=== PATIENT | male | born 1980 | race African-American/Black ===

== ENCOUNTER 2016-10-14 07:18 | Emergency (ER) | payer SELFPAY ==
[2016-10-14] MEDS ORDERED: Ketorolac INJ* 60 MG/2 ML VIAL IM ONE (07:47)
--- NOTE | 2016-10-14 08:40 | UC ---
bere Vasquez Timothy, scribed for Joseph Romero MD on 10/14/16 at 0740 . HPI Wound/Suture Re-check - HPI Summary HPI Summary: Ant Draper Jr. is a 35 yo male presenting to [facility] with an open wound on his lower left side after falling on his shed 10/10/16. he is in 9/10 sharp, throbbing, aching pain. he states he had his tetanus shot last year. He attempted to stitch up the wound with super glue, but it reopened. His MHx includes HTN, hernia repair, and tobacco use. - History Of Current Complaint Chief Complaint: UCWounds Stated Complaint: SOFT TISSUE Time Seen by Provider: 10/14/16 07:25 Hx Obtained From: Patient Onset/Duration: Sudden Onset Surgical Site: lower left side Severity: Moderate Pain Intensity: 9 Pain Scale Used: 0-10 Numeric - Allergies/Home Medications Allergies/Adverse Reactions: Allergies Allergy/AdvReac Type Severity Reaction Status Date / Time Acetaminophen [From Tylenol] Allergy Severe Hives Verified 04/06/16 16:49 Amoxicillin Allergy Severe Hives Verified 04/06/16 16:49 Clindamycin Allergy Severe Heartburn Verified 04/06/16 16:49 Penicillins Allergy Severe Hives Verified 04/06/16 16:49 PMH/Surg Hx/FS Hx/Imm Hx Endocrine History Of: Denies: Diabetes, Thyroid Disease Cardiovascular History Of: Reports: Hypertension - hx of fluctuating BP Denies: Cardiac Disorders Respiratory History Of: Denies: COPD, Asthma GI/ History Of: Denies: Ulcer - Surgical History Surgical History: Yes Surgery Procedure, Year, and Place: Hernia Repair as a child - Family History Known Family History: Positive: Hypertension, Diabetes Negative: Cardiac Disease - Social History Alcohol Use: Daily Alcohol Amount: 3 beers per day Substance Use Type: None Smoking Status (MU): Heavy Every Day Tobacco Smoker Type: Cigarettes Amount Used/How Often: 1 PPD Have You Smoked in the Last Year: Yes Household Exposure Type: Cigarettes Cessation Counseling: Patient Advised to Stop - Immunization History Most Recent Tetanus Shot: 2015 Review of Systems Constitutional: Negative Skin: Other - wound to lower left side Eyes: Negative ENT: Negative Respiratory: Negative Cardiovascular: Negative Gastrointestinal: Negative Genitourinary: Negative Motor: Negative Neurovascular: Negative Musculoskeletal: Negative Neurological: Negative Psychological: Negative All Other Systems Reviewed And Are Negative: Yes Physical Exam Triage Information Reviewed: Yes Vital Signs: Initial Vital Signs Temp 97.1 F 10/14/16 07:24 Pulse 100 10/14/16 07:24 Resp 18 10/14/16 07:24 BP 165/112 10/14/16 07:24 Pulse Ox 97 10/14/16 07:24 Vital Signs Reviewed: Yes - Additional Comments VITAL SIGNS: Reviewed. GENERAL: Patient is a well developed and nourished who is lying comfortable in the stretcher. Patient is not in any acute respiratory distress. HEAD AND FACE: Normocephalic EYES: PERRLA, EOMI x 2. EARS: Hearing grossly intact. MOUTH: Oropharynx within normal limits. NECK: Supple, trachea is midline, no adenopathy, no JVD, no carotid bruit. CHEST: Symmetric, no tenderness at palpation LUNGS: Clear to auscultation bilaterally. No wheezing or crackles. CVS: Regular rate and rhythm, S1 and S2 present, no murmurs or gallops appreciated. ABDOMEN: Soft, non-tender. Bowel sounds are normal. No abdominal abnormal pulsations. EXTREMITIES: FROM in all major joints, no edema, no cyanosis or clubbing. NEURO: Alert and oriented x 3. No acute neurological deficits. Speech is normal and follows commands. SKIN: Dry and warm. There is a 2 cm deep, 2.5 cm radius wound on the distal aspect of his left flank. Procedures - Laceration/Wound Repair 1 Location: back - distal aspect left flank Description: Stellate Length, Depth and Shape: 2 cm deep, 2.5 cm radius Irrigated w/ Saline (ccs): 1,000 Laceration/Wound Explored: contaminated Closure: Skin Adhesive Debridement: minimal Suture Type: Other - Wound already 5 days old and contaminated with yellow purulent discharge. Sterile Dressing Applied?: Yes Re-Evaluation - Re-Evaluation First Eval Re-Evaluation Time: 08:05 Change: Unchanged Comment: Pt was advised to present to [facility]. Per his wishes, he will be treated here AMA. Laceration repair was performed, Pt tolerated procedure well. Second Eval Re-Evaluation Time: 08:18 Change: Unchanged Comment: Pt was given AMA forms to sign, and again warned of the risks of his decision Course/Dx - Course Course Of Treatment: Ant Draper Jr. is a 35 yo male presenting to [facility] with an open wound on his lower left side after falling on his shed 10/10/16. he is in 9/10 sharp, throbbing, aching pain. he states he had his tetanus shot last year. He attempted to stitch up the wound with super glue, but it reopened. His MHx includes HTN, hernia repair, and tobacco use. After clinical examination, Pt was advised to be transferred to the [facility]. Pt prefers to stay at [facility] AMA. Wound was irrigated with normal saline approximately 100 cc. In the physical exam I paced a Q tip and it seems that the dept of the wound was approximately 2 cm in depth and 2 cm wide. It has yellow purulent discharge. Culture was obtained and send. Patient also has an uncontrolled HTN. I asked the patient to be transferred to the Ed for better assessment and work up. I believe he will benefit of a surgical consult. Patient refuses. He understands the benefits and risk of not going to the ED for further assessment and treatment. He still refuses and agrees to sing AMA. In the UC the wound was irrigated and bacitracin was applied. I place a telfa dressing. I discussed my physical and findings with Dr. Salguero form Surgery and she agrees to see patient as an outpatient in her office in 2 days. Patient also with an uncontrolled HTN. he has hx of HTN but not taking any medications. He refuses to take any medications. He was given education at length why he should be taking antihypertensive medications and better control of his blood pressure. Since patient again refuses to go to the ED I will start him in Chlorthalidone. He was offered clonidine and metoprolol in the for initial control of BP but he refuses. I extensively discussed with the patient the benefits and risk of leaving AMA. I also discussed the alternatives to leaving AMA, however, the patient still insist to leave the hospital AMA.. The primary nurse and the charge nurse also strongly recommended that the patient should not leave AMA. Patient understands the risk of leaving AMA, which includes but is not restricted to . Patient is Alert and oriented times three and patient verbalizes understanding. Patient has full capacity and is cognitively intact. Patient signed the AMA form. Patient was also advised to return to ED if he changes his mind or if the symptoms worsen or other symptoms appear. Patient understands and agrees. Patient was given Rx for Keflex for the infection. He was asked to see his PMD tomorrow for rechecking his BP. He agress. - Differential Dx - Laceration/Wound Differential Diagnoses: Other - Uncontrol HTN, Abscess, Cellulitis, puncture wound, Provider Diagnoses: high blood pressure in poor control, puncture wound, wound infection - Physician Notification/Consults Discussed Patient Care With: 0809 - Dr. Salguero (surgery) - discussed Pt condition, recommends she see Pt for follow up. Instructed by Provider To: Other - send to Pt in 2 days Discharge - Discharge Plan Condition: Stable Disposition: HOME Prescriptions: Chlorthalidone TAB* [Hygroton TAB*] 25 mg PO DAILY #30 tab Naproxen TAB* [Naprosyn TAB*] 500 mg PO Q8H PRN #20 tab PRN Reason: Pain Sulfamethox/Trimethoprim DS* [Bactrim DS 800/160 TAB*] 1 tab PO BID #20 tab Patient Education Materials: Puncture Wound (ED), Wound Infection (ED), Low Sodium Diet (ED), Hypertension (ED) Forms: *Work Release Referrals: [facility] [place] PHYSICIAN REFERRAL [Outside] - 5 Days No Primary Care Phys,NOPCP [Primary Care Provider] - Elizabeth Salguero MD [Medical Doctor] - 2 Days Additional Instructions: Please follow up with a primary care physician and Dr. Salguero regarding your visit to urgent care today. Return to urgent care or the emergency department with any new or recurring symptoms. The documentation as recorded by the bere brandon Timothy accurately reflects the service I personally performed and the decisions made by me, Joseph Romero MD.
[2016-10-14 08:43] VITALS: BP 180/122
== END 2016-10-14 08:30 | disposition home or self-care (01) ==
LOC: UCEAST 07:18
DX: S31.134A Puncture wound of abdominal wall without foreign body, left lower quadrant without penetration into peritoneal cavity, initial encounter (principal); L08.9 Local infection of the skin and subcutaneous tissue, unspecified; W18.09XA Striking against other object with subsequent fall, initial encounter; Y93.9 Activity, unspecified; Y92.89 Other specified places as the place of occurrence of the external cause; I10 Essential (primary) hypertension; Z88.6 Allergy status to analgesic agent; Z88.1 Allergy status to other antibiotic agents; Z88.0 Allergy status to penicillin; F17.210 Nicotine dependence, cigarettes, uncomplicated
CPT/HCPCS: 87070; 87205; 87640; 87641; 96372; 99213; G0463; J1885

== ENCOUNTER 2017-06-24 12:18 | Emergency (ER) | payer SELFPAY ==
[2017-06-24 13:43] VITALS: BP 154/88
[2017-06-24] MEDS ORDERED: Ketorolac INJ* 60 MG/2 ML VIAL IM ONE (14:31)
--- NOTE | 2017-06-24 14:44 | RAD ---
INDICATION: Left shoulder injury. TECHNIQUE: 4 views of the left shoulder were obtained. FINDINGS: The bones are in normal alignment. No fracture is seen. Joint spaces appear maintained. IMPRESSION: NO EVIDENCE OF FRACTURE.
--- NOTE | 2017-07-05 18:01 | UC ---
Heri Vasquez Angela, scribed for Dimple Gong DO on 06/24/17 at 1358 . Upper Extremity HPI - HPI Summary HPI Summary: This pt is a 36 y/o male presenting to [facility] c/o left shoulder pain for approximately 1 week. Pt reports he was pulling a heavy cart and felt a pop in his left shoulder, instead of pushing. For the first 2-3 days, pt had no pain. One morning, pt states he woke up with left shoulder pain. He notes that he has difficulty lifting up plates while at work secondary to pain. His pain is aggravated with turning of the neck and movement. Pt currently rates his pain 10 /10 in severity. Pt additionally c/o left shoulder pain radiating up to his left sided neck and into his right shoulder blade, left arm numbness. No elbow pain. He denies fever chills, nausea, vomiting, chest pain, SOB, rash, headaches. No PMHx. - History of Current Complaint Chief Complaint: UCUpperExtremity Stated Complaint: SHOULDER INJURY Time Seen by Provider: 06/24/17 13:46 Hx Obtained From: Patient Onset/Duration: Lasting Days, Still Present Severity Initially: Severe Severity Currently: Severe Pain Intensity: 10 Pain Scale Used: 0-10 Numeric Location Of Pain: Is Discrete @ - left shoulder pain, Radiates To - left sided neck and right shoulder blade Aggravating Factor(s): Movement, Lifting, Other - turning head or body Associated Signs And Symptoms: Positive: Numbness/Tingling - numbness in left arm., Other - left shoulder pain radiating up to his left sided neck and into his right shoulder blade. Negative: Fever - Allergies/Home Medications Allergies/Adverse Reactions: Allergies Allergy/AdvReac Type Severity Reaction Status Date / Time Amoxicillin Allergy Severe Hives Verified 04/06/16 16:49 Clindamycin Allergy Severe Heartburn Verified 04/06/16 16:49 Penicillins Allergy Severe Hives Verified 04/06/16 16:49 Codeine AdvReac Constipatio Verified 06/24/17 13:44 n Home Medications: Home Medications Ibuprofen [Ibuprofen 200 MG] 800 mg PO Q8HR PRN 06/24/17 [History Confirmed ] PMH/Surg Hx/FS Hx/Imm Hx Previously Healthy: Yes Other Endocrine History: DENIES: diabetes Other Respiratory History: DENIES: COPD - Surgical History Surgical History: Yes Surgery Procedure, Year, and Place: Hernia Repair as a child - Family History Known Family History: Positive: Hypertension, Diabetes - mother Negative: Cardiac Disease - Social History Occupation: Employed Full-time Alcohol Use: Daily Alcohol Amount: 2 drinks daily Substance Use Type: None Smoking Status (MU): Heavy Every Day Tobacco Smoker Type: Cigarettes Amount Used/How Often: 0.5ppd Have You Smoked in the Last Year: Yes Household Exposure Type: Cigarettes Cessation Counseling: Patient Advised to Stop - Immunization History Most Recent Influenza Vaccination: Not UTD Most Recent Tetanus Shot: 2016 Review of Systems Constitutional: Negative Skin: Negative Eyes: Negative ENT: Negative Respiratory: Negative Cardiovascular: Negative Gastrointestinal: Negative Genitourinary: Negative Motor: Decreased ROM - in left shoulder Neurovascular: Negative Musculoskeletal: Other: - left shoulder pain radiating up to his left sided neck and into his right shoulder blade Neurological: Numbness - left arm numbness, Other - NEG: headache Psychological: Negative All Other Systems Reviewed And Are Negative: Yes Physical Exam Triage Information Reviewed: Yes Appearance: Well-Appearing, No Pain Distress, Well-Nourished Vital Signs: Initial Vital Signs Temp 98.9 F 06/24/17 13:39 Pulse 87 06/24/17 13:39 Resp 18 06/24/17 13:39 BP 154/88 06/24/17 13:39 Pulse Ox 98 06/24/17 13:39 Vital Signs Reviewed: Yes Eyes: Positive: Conjunctiva Clear. Negative: Discharge ENT: Positive: Hearing grossly normal. Negative: Muffled voice, Hoarse voice Neck exam: Normal Neck: Positive: Supple Respiratory: Positive: Lungs clear, Normal breath sounds, No respiratory distress, No accessory muscle use Cardiovascular: Positive: RRR, No Murmur Musculoskeletal Exam: Other - LUE: posterior aspect of left scapula is tender. Decreased ROM secondary to pain. Musculoskeletal: Positive: Edema @ - left hand - dep[endant swelling Neurological: Positive: Alert, Muscle Tone Normal Psychological Exam: Normal Psychological: Positive: Age Appropriate Behavior Skin Exam: Normal, Other - warm, dry, normal color Diagnostics - Radiology Left shoulder XR Xray Interpretation: No Acute Changes - IMPRESSION: No evidence of fracture. physician has reviewed this radiology report and agrees. Radiology Interpretation Completed By: Radiologist Upper Extremity Course/Dx - Course Course Of Treatment: Medications reviewed this visit. The patient has been encouraged to quit smoking. Elevated blood pressure noted likely due to pt's condition. Pt was given a toradol injection. Left shoulder XR is negative for fracture. Pt will be discharged home with naproxen sodium and a sling for comfort. - Differential Dx/Diagnosis Provider Diagnoses: Rotator cuff injury Discharge - Discharge Plan Condition: Stable Disposition: HOME Prescriptions: HYDROcodone/ACETAMIN 5-325 MG* [[place] 5-325 TAB*] 1 tab PO Q6H PRN #14 tab MDD 4 TABS PRN Reason: Pain Naproxen Sodium [Naproxen Sodium 500 MG TAB] 500 mg PO BID #14 tab Patient Education Materials: Rotator Cuff Injury (ED) Forms: *Work Release Referrals: [facility] [place] PH[facility]IAN REFERRAL [Outside] Tawanda Gastelum MD [Medical Doctor] - (follow up within 1 week) No Primary Care Phys,NOPCP [Primary Care Provider] - Additional Instructions: ANTI-INFLAMMATORY MEDICATION: You have received a prescription for an antiinflammatory agent. This is an excellent, safe drug for pain control. In addition, it has potent antiinflammatory effects which are beneficial, especially in the treatment of injuries, arthritis, or tendonitis. It's best to take this medicine with food. Persons with ulcer disease or allergy to aspirin should notify their physician of this before taking this drug. Take the medication exactly as prescribed. Don't take additional doses unless instructed to do so by your doctor. If you develop wheezing, shortness of breath, hives, faintness, stomach pain, vomiting, or dark black stools, return for re-evaluation at once. ORAL NARCOTIC MEDICATION: You have been given a prescription for pain control. This medication is a narcotic. It's best taken with food, as nausea can result if taken on an empty stomach. Don't operate machinery or drive within six hours of taking this medication. Do not combine this medicine with alcohol, or with any medication which can cause sedation (such as cold tablets or sleeping pills) unless you get permission from the physician. Narcotics tend to cause constipation. If possible, drink plenty of fluids and eat a diet high in fiber and fruits. REMEMBER TO TAKE YOUR ARM OUT OF THE SLING SEVERAL TIMES A DAY TO MOVE THE ELBOW SO IT DOES NOT GET STIFF. EXERCISE PROGRAM FOR THE SHOULDER: Since the shoulder moves in so many directions, the joint attachment is weak. Muscles provide most of the stability to the shoulder. You must exercise your shoulder to prevent painful instability or stiffening. PASSIVE - These may be begun within a few days of the injury. While standing, lean forward, allowing the arm to hang down towards the floor. Move the arm in small circles while slowly twisting your chest towards and away from the hanging arm. Do this for one minute. ACTIVE - These may be performed when the doctor gives permission. Begin with the arms at the sides. Raise the arms forward (shoulder's width apart) until they reach shoulder level. Then slowly swing both arms back until they are aiming straight out away from each other. Then bring them forward again, and finally, lower them to your sides. Repeat 20 to 30 times. As you improve, put weights in your hands for the exercise. Start with one pound, and work up to 10 pounds. Never use more than is comfortable. Athletes may work up to 30 pounds. YOU WOULD LIKELY BENEFIT FROM OSTEOPATHIC MANIPULATION. WE RECOMMEND THAT YOU FIND AN OSTEOPATHIC PHYSICIAN IN YOUR AREA WHO DOES LYMPHATIC, MYOFACIAL AND VISCERAL WORK FOLLOW-UP CARE: You should establish with a private physician for follow-up care. If you are unable to get a timely appointment, or if you are worsening, call us or return for re-evaluation. An additional resource available to assist in finding the appropriate physician for your health care needs is the Physician Referral Center. You may contact them by calling [phone]. The documentation as recorded by the Heri brandon Angela accurately reflects the service I personally performed and the decisions made by me, Dimple Gong DO.
== END 2017-06-24 15:13 | disposition home or self-care (01) ==
LOC: UCEAST 12:18
DX: S46.002A Unspecified injury of muscle(s) and tendon(s) of the rotator cuff of left shoulder, initial encounter (principal); X50.0XXA Overexertion from strenuous movement or load, initial encounter; Y93.9 Activity, unspecified; Y92.9 Unspecified place or not applicable; Z88.5 Allergy status to narcotic agent; Z88.0 Allergy status to penicillin; F17.210 Nicotine dependence, cigarettes, uncomplicated
CPT/HCPCS: 96372; 99213; G0463; J1885

== ENCOUNTER 2017-12-27 15:07 | Emergency (ER) | payer OTHER ==
[2017-12-27] MEDS ORDERED: LORazepam TAB(*) 1 MG PO ONE (16:00)
[2017-12-27 16:26] LABS: Urine Appearance Clear; Urine Blood Negative (Negative); Urine Color Colorless; Urine Ketones Negative (Negative); Urine Protein Negative (Negative); Urine Specific Gravity 1.001 (1.010-1.030); Urine Urobilinogen Negative (Negative)
[2017-12-27 17:46] LABS: ABS Basophils 0 10^3/ul (0-0.2); ABS Eosinophils 0.1 10^3/ul (0-0.6); ABS Lymphocytes 1.7 10^3/ul (1.0-4.8); ABS Monocytes 0.5 10^3/ul (0-0.8); ABS Neutrophils 4.1 10^3/ul (1.5-7.7); ABS Nucleated RBC 0 10^3/ul; Eosinophil % 1.1 % (0-6); Hematocrit 43 % (42-52); Hemoglobin 14.8 g/dl (14.0-18.0); Lymphocyte % 27.3 % (25-47); Mean Corpuscular HGB Conc 34 g/dl (31-36); Mean Corpuscular Hemoglobin 31 pg (27-31); Mean Corpuscular Volume 91 fL (80-94); Mean Platelet Volume 7.6 um3 (7.4-10.4); Nucleated Red Blood Cells % 0; Platelet Count 289 10^3/ul (150-450); Red Blood Count 4.74 10^6/ul (4.0-5.4); Red Cell Distribution Width 14 % (10.5-15); White Blood Count 6.4 10^3/ul (3.5-10.8)
--- NOTE | 2017-12-27 21:35 | ED ---
Heri Vasquez Angela, scribed for Joseph Romero MD on 12/27/17 at 1610 . Psychiatric Complaint - HPI Summary HPI Summary: This pt is a 37 y/o male presenting to [facility] requesting to speak with mental health evaluators for depression and anxiety. Pt states he is "on the edge" and is requesting counseling. Pt denies SI or HI thoughts/plan. He reports he has been drinking alcohol and doing lines of cocaine. Pt notes he last used cocaine this morning, 1 gram. Pt additionally states marijuana and alcohol use. Pt is very anxious during this encounter. - History Of Current Complaint Chief Complaint: EDMentalHealth Hx Obtained From: Patient, Other: - ED nurse Onset/Duration: Still Present Timing: Constant Severity Currently: Severe Character: Depressed, Anxious Aggravating Factor(s): Alcohol Use, Drug Use - cocaine Alleviating Factor(s): Nothing Associated Signs And Symptoms: Positive: Negative Has Suicidal: Denies: Thoughts, With A Plan Has Homicidal: Denies: Thoughts, With A Plan Ingestion History: Type/Name Of Drug - Cocaine, Amount Ingested - 1 g, per pt - Allergies/Home Medications Allergies/Adverse Reactions: Allergies Allergy/AdvReac Type Severity Reaction Status Date / Time MS Amoxicillin [Amoxicillin] Allergy Severe Hives Verified 04/06/16 16:49 MS Clindamycin [Clindamycin] Allergy Severe Heartburn Verified 04/06/16 16:49 MS Penicillins [Penicillins] Allergy Severe Hives Verified 04/06/16 16:49 MS Codeine [Codeine] AdvReac Constipatio Verified 06/24/17 13:44 n Home Medications: Home Medications NK [No Home Medications Reported] 12/27/17 [History Confirmed 12/27/17] PMH/Surg Hx/FS Hx/Imm Hx Endocrine/Hematology History: Denies: Hx Diabetes, Hx Thyroid Disease Cardiovascular History: Reports: Hx Hypertension - hx of fluctuating BP Respiratory History: Denies: Hx Asthma, Hx Chronic Obstructive Pulmonary Disease (COPD) GI History: Denies: Hx Ulcer - Surgical History Surgery Procedure, Year, and Place: Hernia Repair as a child Infectious Disease History: No Infectious Disease History: Denies: Hx Clostridium Difficile, Hx Hepatitis, Hx Human Immunodeficiency Virus (HIV), Hx of Known/Suspected MRSA, Hx Shingles, Hx Tuberculosis, Hx Known/ Suspected VRE, Hx Known/Suspected VRSA, History Other Infectious Disease, Traveled Outside the [place] in Last 30 Days - Family History Known Family History: Positive: Hypertension, Diabetes - mother Negative: Cardiac Disease - Social History Alcohol Use: Daily Alcohol Amount: 2 drinks daily Substance Use Type: Reports: Cocaine, Marijuana Hx Tobacco Use: Yes Smoking Status (MU): Heavy Every Day Tobacco Smoker Type: Cigarettes Amount Used/How Often: 0.5ppd Have You Smoked in the Last Year: Yes Review of Systems Negative: Fever Gastrointestinal: Negative Genitourinary: Negative Musculoskeletal: Negative Positive: Anxious, Depressed. Negative: Other - SI or HI thoughts/plan All Other Systems Reviewed And Are Negative: Yes Physical Exam - Summary Physical Exam Summary: VITAL SIGNS: Reviewed. GENERAL: Patient is a well-developed and nourished male. Patient is not in any acute respiratory distress. HEAD AND FACE: No signs of trauma. No ecchymosis, hematomas or skull depressions. No sinus tenderness. EYES: PERRLA, EOMI x 2, No injected conjunctiva, no nystagmus. EARS: Hearing grossly intact. Ear canals and tympanic membranes are within normal limits. MOUTH: Oropharynx within normal limits. NECK: Supple, trachea is midline, no adenopathy, no JVD, no carotid bruit, no c- spine tenderness, neck with full ROM. CHEST: Symmetric, no tenderness at palpation LUNGS: Clear to auscultation bilaterally. No wheezing or crackles. CVS: Regular rate and rhythm, S1 and S2 present, no murmurs or gallops appreciated. ABDOMEN: Soft, non-tender. No signs of distention. No rebound no guarding, and no masses palpated. Bowel sounds are normal. EXTREMITIES: FROM in all major joints, no edema, no cyanosis or clubbing. NEURO: Alert and oriented x 3. No acute neurological deficits. Speech is normal and follows commands. SKIN: Dry and warm PSYCH: anxious Triage Information Reviewed: Yes Vital Signs On Initial Exam: Initial Vitals Temp Pulse Resp BP Pulse Ox 98.5 F 102 17 179/135 99 12/27/17 15:12 12/27/17 15:12 12/27/17 15:12 12/27/17 15:12 12/27/17 15:12 Vital Signs Reviewed: Yes Diagnostics - Vital Signs Vital Signs Temp Pulse Resp BP Pulse Ox 06/04/18 15:42 94 24 97 12/27/17 15:12 98.5 F 102 17 179/135 99 - Laboratory Lab Results: Lab Results 12/27/17 12/27/17 12/27/17 Range/Units 16:12 16:12 17:10 WBC 6.4 (3.5-10.8) 10^3/ul RBC 4.74 (4.0-5.4) 10^6/ul Hgb 14.8 (14.0-18.0) g/dl Hct 43 (42-52) % MCV 91 (80-94) fL MCH 31 (27-31) pg MCHC 34 (31-36) g/dl RDW 14 (10.5-15) % Plt Count 289 (150-450) 10^3/ul MPV 7.6 (7.4-10.4) um3 Neut % (Auto) 63.8 (38-83) % Lymph % (Auto) 27.3 (25-47) % [place] % (Auto) 7.1 H (0-7) % Eos % (Auto) 1.1 (0-6) % Baso % (Auto) 0.7 (0-2) % Absolute Neuts (auto) 4.1 (1.5-7.7) 10^3/ul Absolute Lymphs (auto) 1.7 (1.0-4.8) 10^3/ul Absolute Monos (auto) 0.5 (0-0.8) 10^3/ul Absolute Eos (auto) 0.1 (0-0.6) 10^3/ul Absolute Basos (auto) 0 (0-0.2) 10^3/ul Absolute Nucleated RBC 0 10^3/ul Nucleated RBC % 0 Urine Color Colorless Urine Appearance Clear Urine pH 6.0 (5-9) Ur Specific [place] 1.001 L (1.010-1.030) Urine Protein Negative (Negative) Urine Ketones Negative (Negative) Urine Blood Negative (Negative) Urine Nitrate Negative (Negative) Urine Bilirubin Negative (Negative) Urine Urobilinogen Negative (Negative) Ur Leukocyte Esterase Negative (Negative) Urine Glucose Negative (Negative) Urine Opiates Screen None detected (None Detect) Ur Barbiturates Screen None detected (None Detect) Ur Phencyclidine Scrn None detected (None Detect) Ur Amphetamines Screen None detected (None Detect) U Benzodiazepines Scrn None detected (None Detect) Urine Cocaine Screen Presumptive positive A (None Detect) U Cannabinoids Screen None detected (None Detect) Result Diagrams: 12/27/17 17:10 12/27/17 17:10 Lab Statement: Any lab studies that have been ordered have been reviewed, and results considered in the medical decision making process. Course/Dx - Course Assessment/Plan: Test results without any significant abnormalities except for positive toxicology for cocaine. Pt is medically cleared at 17:32. He is awaiting mental health evaluation. 37-year-old male who presents to the emergency room with a chief complaint of having anxiety and depression. Patient denies any suicidal ideation or homicidal ideation. He requested to talk to a mental health qa software tester. The patient declined blood work. Urinalysis negative for UTI. Urine toxicology positive for cocaine. He denies any chest pain shortness of breath or palpitations. Patient was medically cleared to see a mental health evaluation. At this time mental health evaluation is still pending. Therefore, the pt will be signed out to Dr. Harley, pending disposition, awaiting MHE. - Differential Dx/Clinical Impression Differential Diagnosis/HQI/PQRI: Positive: Anxiety, Depression Provider Diagnosis: Anxiety Discharge - Sign-Out/Discharge Documenting (check all that apply): Sign-Out Patient Signing out patient TO: Kwasi Harley - pending MHE - Discharge Plan Condition: Stable Referrals: No Primary Care Phys,NOPCP [Primary Care Provider] - The documentation as recorded by the Heri brandon Angela accurately reflects the service I personally performed and the decisions made by , Joseph Romero MD.
--- NOTE | 2017-12-28 07:00 | ED ---
Dorie Vasquez Emily, scribed for Kwasi Harley MD on 12/28/17 at 0658 . Progress - Progress Note Progress Note: This patient was signed out from Dr. Romero upon shift change pending MHE. The patient will be signed out to Dr. Zheng upon shift change pending MHE. - Consult/PCP Time Called: 19:18 Course/Dx - Course Course Of Treatment: The patient will be signed out to Dr. Zheng upon shift change pending MHE. - Diagnoses Provider Diagnoses: Anxiety Discharge - Sign-Out/Discharge Documenting (check all that apply): Sign-Out Patient, Receiving Sign-Out Signing out patient TO: Ag Zheng - Sign out upon shift change pending MHE Receiving patient FROM: Joseph Romero - Sign out upon shift change pending MHE - Discharge Plan Condition: Stable Additional Instructions: Per completion of a mental health evaluation, you are cleared for release and do not require inpatient psychiatric hospitalization at this time. Please go to nearest emergency room or call 911 if safety concerns arise or condition worsens. [facility]........[phone] Suicide Prevention and Crisis Services........................[phone] National Suicide Prevention Lifeline............................[phone]-QJRL ( 2643) [facility].......................[phone] Alcoholics Anonymous...............................................[phone] [facility]..............[phone] [facility] Police..............................................[phone] Referrals have been made to the following substance abuse programs for treatment : The documentation as recorded by the Dorie brandon Emily accurately reflects the service I personally performed and the decisions made by me, Kwasi Harley MD.
--- NOTE | 2017-12-28 07:50 | PN ---
ED Flex Patient Progress Note Subjective: This is a 37 year-old M who is pending social work consult secondary to substance abuse - requesting rehab . Pt offers no complaints at this time. Would like breakfast. Objective: Vitals: Most recent vital signs documented below. General NAD, Alert and oriented x3. Heart: rrr S1/S2 Lungs: CTA, BREATHING easily AB: +BS, NT, soft Assessment: Substance abuse Plan: Pending social work consult. Will follow up daily __while in ED___. Vital Signs Temp Pulse Resp BP Pulse Ox 98.7 F 88 18 148/96 99 12/27/17 20:39 12/27/17 20:39 12/27/17 20:39 12/27/17 20:39 12/27/17 20:39 Lab Results - Entire Visit 12/27/17 12/27/17 12/27/17 17:10 17:10 16:12 WBC 6.4 RBC 4.74 Hgb 14.8 Hct 43 MCV 91 MCH 31 MCHC 34 RDW 14 Plt Count 289 MPV 7.6 Neut % (Auto) 63.8 Lymph % (Auto) 27.3 [place] % (Auto) 7.1 H Eos % (Auto) 1.1 Baso % (Auto) 0.7 Absolute Neuts (auto) 4.1 Absolute Lymphs (auto) 1.7 Absolute Monos (auto) 0.5 Absolute Eos (auto) 0.1 Absolute Basos (auto) 0 Absolute Nucleated RBC 0 Nucleated RBC % 0 Sodium 141 Potassium 3.6 Chloride 106 Carbon Dioxide 24 Anion Gap 11 BUN 9 Creatinine 0.90 Est GFR ( Amer) 123.5 Est GFR (Non-Af Amer) 96.0 BUN/Creatinine Ratio 10.0 Glucose 88 Calcium 9.3 Total Bilirubin 0.30 AST 21 ALT 16 Alkaline Phosphatase 67 Total Protein 7.1 Albumin 4.2 Globulin 2.9 Albumin/Globulin Ratio 1.4 TSH 0.33 L Urine Color Urine Appearance Urine pH Ur Specific [place] Urine Protein Urine Ketones Urine Blood Urine Nitrate Urine Bilirubin Urine Urobilinogen Ur Leukocyte Esterase Urine Glucose Salicylates < 2.50 Urine Opiates Screen None detected Acetaminophen < 15 Ur Barbiturates Screen None detected Ur Phencyclidine Scrn None detected Ur Amphetamines Screen None detected U Benzodiazepines Scrn None detected Urine Cocaine Screen Presumptive positive A U Cannabinoids Screen None detected Serum Alcohol 64 H 12/27/17 16:12 WBC RBC Hgb Hct MCV MCH MCHC RDW Plt Count MPV Neut % (Auto) Lymph % (Auto) [place] % (Auto) Eos % (Auto) Baso % (Auto) Absolute Neuts (auto) Absolute Lymphs (auto) Absolute Monos (auto) Absolute Eos (auto) Absolute Basos (auto) Absolute Nucleated RBC Nucleated RBC % Sodium Potassium Chloride Carbon Dioxide Anion Gap BUN Creatinine Est GFR ( Amer) Est GFR (Non-Af Amer) BUN/Creatinine Ratio Glucose Calcium Total Bilirubin AST ALT Alkaline Phosphatase Total Protein Albumin Globulin Albumin/Globulin Ratio TSH Urine Color Colorless Urine Appearance Clear Urine pH 6.0 Ur Specific [place] 1.001 L Urine Protein Negative Urine Ketones Negative Urine Blood Negative Urine Nitrate Negative Urine Bilirubin Negative Urine Urobilinogen Negative Ur Leukocyte Esterase Negative Urine Glucose Negative Salicylates Urine Opiates Screen Acetaminophen Ur Barbiturates Screen Ur Phencyclidine Scrn Ur Amphetamines Screen U Benzodiazepines Scrn Urine Cocaine Screen U Cannabinoids Screen Serum Alcohol
[2017-12-28 13:45] VITALS: BP 158/98
== END 2017-12-28 13:28 ==
LOC: ED 15:07
DX: F41.9 Anxiety disorder, unspecified (principal); F32.9 Major depressive disorder, single episode, unspecified; I10 Essential (primary) hypertension; Z88.1 Allergy status to other antibiotic agents; Z88.5 Allergy status to narcotic agent; Z88.0 Allergy status to penicillin; Z82.49 Family history of ischemic heart disease and other diseases of the circulatory system; Z83.3 Family history of diabetes mellitus; F17.210 Nicotine dependence, cigarettes, uncomplicated
CPT/HCPCS: 36415; 80053; 80307; 80320; 80329; 81003; 84443; 85025; 99284; A9270-GY; G0480

== ENCOUNTER 2018-02-17 18:46 | Emergency (ER) | payer MEDICAID, OTHER ==
--- NOTE | 2018-02-17 21:32 | ED ---
Lower Extremity - HPI Summary HPI Summary: This is scribe Manasnoman Ramos documenting for attending Dr. Luis E Glynn MD. A 37 y/o male presents to ED c/o left leg/calf swelling/pain reaching 10/10 in severity. Currently, the patient still experiences swelling on his left leg and cannot straighten out his leg. Other than the chief complaint, patient's health is otherwise normal. As per triage, "arrives with 3 days hx of l leg swelling and tenderness,calf very tender pain extends inti his knee.no hx of blood clots ". According to the patient, for the past 3 days he has been experiencing leg/ calf pain and swelling. Initially, he experienced pain in his interior ankle one week ago, however, the pain worsened by radiating to his knee and calf. Pt denies any CP, however has intermittent SOB (needs to catch his breathe sometimes). No FHx of thrombosis. - History of Current Complaint Chief Complaint: EDExtremityLower Stated Complaint: LT LEG SWOLLEN Time Seen by Provider: 02/17/18 20:39 Hx Obtained From: Patient Mechanism Of Injury: Unknown Onset/Duration: Worse Since - 1 week Severity Initially: Severe - 1 week ago. Severity Currently: Severe Pain Intensity: 10 Pain Scale Used: 0-10 Numeric Timing: Constant Location: Other - Interior ankle radiating to knee and calf. Associated Signs And Symptoms: Positive: Swelling Aggravating Factor(s): Movement Alleviating Factor(s): Nothing - Allergies/Home Medications Allergies/Adverse Reactions: Allergies Allergy/AdvReac Type Severity Reaction Status Date / Time Penicillins Allergy Unknown Verified 02/17/18 18:53 Reaction Details amoxicillin AdvReac Severe Hives Verified 02/17/18 18:53 clindamycin AdvReac Mild Heartburn Verified 02/17/18 18:53 codeine AdvReac Mild Constipatio Verified 02/17/18 18:53 n PMH/Surg Hx/FS Hx/Imm Hx Endocrine/Hematology History: Denies: Hx Diabetes, Hx Thyroid Disease Cardiovascular History: Reports: Hx Hypertension - hx of fluctuating BP Respiratory History: Denies: Hx Asthma, Hx Chronic Obstructive Pulmonary Disease (COPD) GI History: Denies: Hx Ulcer - Surgical History Surgery Procedure, Year, and Place: Hernia Repair as a child Infectious Disease History: No Infectious Disease History: Denies: Hx Clostridium Difficile, Hx Hepatitis, Hx Human Immunodeficiency Virus (HIV), Hx of Known/Suspected MRSA, Hx Shingles, Hx Tuberculosis, Hx Known/ Suspected VRE, Hx Known/Suspected VRSA, History Other Infectious Disease, Traveled Outside the [place] in Last 30 Days - Family History Known Family History: Positive: Hypertension, Diabetes - mother Negative: Cardiac Disease - Social History Alcohol Use: Daily Alcohol Amount: 2 drinks daily Substance Use Type: Reports: Cocaine, Marijuana Hx Tobacco Use: Yes Smoking Status (MU): Heavy Every Day Tobacco Smoker Type: Cigarettes Amount Used/How Often: 0.5ppd Have You Smoked in the Last Year: Yes Review of Systems Negative: Fever Negative: Chest Pain Positive: Shortness Of Breath - Intermittent Positive: Other - POSITIVE: Leg/calf pain Positive: Other - POSITIVE: Swelling leg/calf All Other Systems Reviewed And Are Negative: Yes Physical Exam - Summary Physical Exam Summary: Appearance: Well-appearing, Well-nourished, lying in bed comfortably Skin: Warm, dry, no obvious rash. Leg has mildly diffuse swelling and calf tenderness with no erythema or warmth. Eyes: sclera anicteric, no conjunctival pallor ENT: mucous membranes moist, pharynx appears normal Neck: Supple, nontender Respiratory: Clear to auscultation, no signs of respiratory distress Cardiovascular: Normal S1, S2. No murmurs. Normal distal pulses in tibial and radial bilaterally. Abdomen: Soft, nontender, normal active bowel sounds present Musculoskeletal: Normal, Strength/ROM Intact Neurological: A&Ox3, awake and alert, mentation is normal, speech is fluent and appropriate Psychiatric: affect is normal, does not appear anxious or depressed Triage Information Reviewed: Yes Vital Signs On Initial Exam: Initial Vitals Temp Pulse Resp BP Pulse Ox 98 F 89 18 174/106 97 02/17/18 18:49 02/17/18 18:49 02/17/18 18:49 02/17/18 18:49 02/17/18 18:49 Vital Signs Reviewed: Yes Diagnostics - Vital Signs Vital Signs Temp Pulse Resp BP Pulse Ox 02/17/18 18:49 98 F 89 18 174/106 97 - Laboratory Lab Statement: Any lab studies that have been ordered have been reviewed, and results considered in the medical decision making process. - Ultrasound No standard instances Ultrasound Interpretation Completed By: Radiologist - US Doppler study: 1. No DVT. 2. 8.3 x 1.2 cm complex fluid collection extending inferior to the popliteal fossa most likely a complex Nath cyst. ED physician reviewed this radiology report. Re-Evaluation - Re-Evaluation First Eval Re-Evaluation Time: 00:07 Comment: Discussed results and discharge. Lower Extremity Course/Dx - Diagnoses Provider Diagnoses: Nath's cyst of knee Discharge - Sign-Out/Discharge Documenting (check all that apply): Patient Departure - DISCHARGE - Discharge Plan Condition: Good Disposition: HOME Prescriptions: Naproxen [Naproxen 375 mg tab] 375 mg PO BID #20 tablet Patient Education Materials: Bakers Cyst (ED) Referrals: No Primary Care Phys,NOPCP [Primary Care Provider] - - Billing Disposition and Condition Condition: GOOD Disposition: Home
[2018-02-17] MEDS ORDERED: oxyCODONE/Acetamin 5/325 MG* TAB PO ONE (23:44)
[2018-02-18 00:22] VITALS: BP 157/103
--- NOTE | 2018-02-18 07:41 | RAD ---
INDICATION: Pain and swelling. COMPARISON: None TECHNIQUE: Duplex interrogation of the Lowerextremity was performed. FINDINGS: Deep veins: The common femoral, great saphenous, profunda femoris, proximal, mid, and distal deep femoral, popliteal, posterior tibial, and peroneal veins are patent. There is normal compressibility, augmentation, and phasic flow. Superficial veins: There are no findings of superficial thrombophlebitis. Popliteal fossa:There is a popliteal fossa cyst measuring 8.3 x 1.2 x 1.2 cm. Soft tissues:There are no soft tissue abnormalities. IMPRESSION: NO EVIDENCE OF DEEP VENOUS THROMBOSIS. POPLITEAL CYST .
== END 2018-02-18 00:14 | disposition home or self-care (01) ==
LOC: ED 18:46
DX: M71.22 Synovial cyst of popliteal space [Baker], left knee (principal); R06.02 Shortness of breath; F17.210 Nicotine dependence, cigarettes, uncomplicated
CPT/HCPCS: 99284; A9270-GY

== ENCOUNTER 2019-08-09 17:44 | Emergency (ER) | payer SELFPAY ==
--- NOTE | 2019-08-09 18:21 | ED ---
Lower Extremity - HPI Summary HPI Summary: Patient complains of blisters and white skin on bilateral feet with associated pain. Patient is homeless, states he has been walking around a lot for the past 4 days. Also complains of left upper dental pain. Denies trauma, history of caries. Denies fever, cough, sore throat, CP, SOB, N/V/D, abdominal pain, change in urine, change in BM. Patient denies medical history. - History of Current Complaint Chief Complaint: EDExtremityLower Stated Complaint: BLISTERS BOTH FEET PER PT Time Seen by Provider: 08/09/19 18:16 Hx Obtained From: Patient Mechanism Of Injury: Unknown Onset/Duration: Days Severity Initially: Mild Severity Currently: Moderate Pain Intensity: 8 Pain Scale Used: 0-10 Numeric Timing: Constant Character Of Pain: Sharp, Burning Associated Signs And Symptoms: Positive: Negative Aggravating Factor(s): Standing, Ambulation Alleviating Factor(s): Rest, Elevation Able to Bear Weight: Yes - Allergies/Home Medications Allergies/Adverse Reactions: Allergies Allergy/AdvReac Type Severity Reaction Status Date / Time Penicillins Allergy Unknown Verified 08/09/19 17:53 Reaction Details amoxicillin AdvReac Severe Hives Verified 08/09/19 17:53 clindamycin AdvReac Mild Heartburn Verified 08/09/19 17:53 codeine AdvReac Mild Constipatio Verified 08/09/19 17:53 n PMH/Surg Hx/FS Hx/Imm Hx Endocrine/Hematology History: Denies: Hx Diabetes, Hx Thyroid Disease Cardiovascular History: Reports: Hx Hypertension - hx of fluctuating BP Respiratory History: Denies: Hx Asthma, Hx Chronic Obstructive Pulmonary Disease (COPD) GI History: Denies: Hx Ulcer History: Denies: Hx Dialysis Sensory History: Denies: Hx Eye Prosthesis Opthamlomology History: Denies: Hx Legally Blind EENT History: Denies: Hx Deafness Neurological History: Denies: Hx Dementia - Surgical History Surgery Procedure, Year, and Place: Hernia Repair as a child Infectious Disease History: No Infectious Disease History: Denies: Hx Clostridium Difficile, Hx Hepatitis, Hx Human Immunodeficiency Virus (HIV), Hx of Known/Suspected MRSA, Hx Shingles, Hx Tuberculosis, Hx Known/ Suspected VRE, Hx Known/Suspected VRSA, History Other Infectious Disease, Traveled Outside the [place] in Last 30 Days - Family History Known Family History: Positive: Hypertension, Diabetes - mother Negative: Cardiac Disease - Social History Alcohol Use: Daily Alcohol Amount: 2 drinks daily Substance Use Type: Reports: Cocaine, Marijuana Hx Tobacco Use: Yes Smoking Status (MU): Heavy Every Day Tobacco Smoker Type: Cigarettes Amount Used/How Often: 0.5ppd Have You Smoked in the Last Year: Yes Review of Systems Constitutional: Negative Eyes: Negative Positive: Dental Pain Cardiovascular: Negative Respiratory: Negative Gastrointestinal: Negative Genitourinary: Negative Musculoskeletal: Other Skin: Other Neurological: Negative Psychological: Normal All Other Systems Reviewed And Are Negative: Yes Physical Exam - Summary Physical Exam Summary: Chronic calluses. Bilateral bilateral hands. Ruptured blisters above bilaterally. Multiple small areas of macerated white skin on toes and sole of left foot and right foot. Macerated skin and whiteness between fourth and fifth digits of right foot. No erythema, ecchymosis, deformity, swelling noted to bilateral feet. EMS intact bilaterally. Triage Information Reviewed: Yes Vital Signs On Initial Exam: Initial Vitals Temp Pulse Resp BP Pulse Ox 98.2 F 92 16 181/101 99 08/09/19 17:51 08/09/19 17:51 08/09/19 17:51 08/09/19 17:51 08/09/19 17:51 Vital Signs Reviewed: Yes Appearance: Positive: Well-Appearing Skin: Positive: Warm Head/Face: Positive: Normal Head/Face Inspection Eyes: Positive: Normal Dental: Positive: Gross Decay/Caries @. Negative: Abscess @, Cellulitis @ Neck: Positive: Supple Respiratory/Lung Sounds: Positive: Clear to Auscultation Cardiovascular: Positive: Normal Abdomen Description: Positive: Nontender Musculoskeletal: Positive: Normal Neurological: Positive: Normal Psychiatric: Positive: Normal AVPU Assessment: Alert - Marita Coma Scale Best Eye Response: 4 - Spontaneous Best Motor Response: 6 - Obeys Commands Best Verbal Response: 5 - Oriented Coma Scale Total: 15 Procedures - Sedation Patient Received Moderate/Deep Sedation with Procedure: No Diagnostics - Vital Signs Vital Signs Temp Pulse Resp BP Pulse Ox 08/09/19 17:51 98.2 F 92 16 181/101 99 - Laboratory Lab Statement: Any lab studies that have been ordered have been reviewed, and results considered in the medical decision making process. Lower Extremity Course/Dx - Course Course Of Treatment: Patient complains of blisters and white skin on bilateral feet with associated pain. Patient is homeless, states he has been walking around a lot for the past 4 days. Also complains of left upper dental pain. Denies trauma, history of caries. Denies fever, cough, sore throat, CP, SOB, N/ V/D, abdominal pain, change in urine, change in BM. Patient denies medical history. Vital signs within normal limits. Patient advised to keep feet clean , and dry, and they should recover in a few days. Patient has multiple dental caries. Advised to see a dentist for same. Rx for clindamycin. - Diagnoses Provider Diagnoses: Trench feet, Pain, dental Discharge ED - Sign-Out/Discharge Documenting (check all that apply): Patient Departure - Discharge Plan Condition: Stable Disposition: HOME Prescriptions: Clindamycin HCl 450 mg PO TID 7 Days #63 capsule Patient Education Materials: Toothache (ED) Referrals: No Primary Care Phys,NOPCP [Primary Care Provider] - Additional Instructions: Keep feet warm, clean and dry. Allow feet to air out, and skin will return to normal. Alternate ibuprofen 600 mg with Tylenol 650 mg every 3 hours for for pain. Take clindamycin as prescribed for dental pain. Follow-up with a dentist as soon as possible. Return to the ED for any new or worsening symptoms. - Billing Disposition and Condition Condition: STABLE Disposition: Home
[2019-08-09] MEDS ORDERED: Ketorolac INJ* 30 MG/ML 1 ML VIAL IM ONE (19:37)
[2019-08-09] MEDS ORDERED: Clindamycin CAP* 150 MG PO ONE (19:37)
[2019-08-09] MEDS ORDERED: Lidocaine 2% VISCOUS* 15 ML UDC PO ONE (19:38)
[2019-08-09 20:11] VITALS: BP 179/98
== END 2019-08-09 20:06 | disposition home or self-care (01) ==
LOC: ED 17:44
DX: T69.022A Immersion foot, left foot, initial encounter (principal); T69.021A Immersion foot, right foot, initial encounter; K08.89 Other specified disorders of teeth and supporting structures; I10 Essential (primary) hypertension; Z59.0 Homelessness; Z88.1 Allergy status to other antibiotic agents; Z88.5 Allergy status to narcotic agent; Z88.0 Allergy status to penicillin; F17.210 Nicotine dependence, cigarettes, uncomplicated
CPT/HCPCS: 99282; A9270-GY; J1885

== ENCOUNTER 2019-09-02 19:13 | Emergency (ER) | payer SELFPAY ==
[2019-09-02] MEDS ORDERED: LORazepam INJ* 2 MG/ML 1 ML VIAL IM ONE (19:21)
[2019-09-02] MEDS ORDERED: Haloperidol INJ IV/IM* 5 MG/ML AMP IM ONE (19:21)
[2019-09-02] MEDS ORDERED: diPHENhydraMINE IV* 50 MG/ML 1 ml VIAL (BENADRYL) IM ONE (19:21)
[2019-09-02] MEDS ORDERED: LORazepam INJ* 2 MG/ML 1 ML VIAL ONE (19:22)
--- NOTE | 2019-09-02 19:27 | ED ---
Substance Abuse/Use - HPI Summary HPI Summary: This patient is a 38 year old M brought to ED as a 2208 with a chief complaint of alcohol intoxication since [employer]. Patient was found lying in the middle of a parking lot in a park on [address]. Bystanders called 911. Patient did not know where he was, but when he was in the police car he became aggressive, kicking on the cage and window of the car and threatening the police. Patient arrives to the ED still disagreeable. Patient denies vomiting. LEVEL 5 CAVEAT: COMPLETE HPI UNATTAINABLE DUE TO PATIENT INTOXICATION. - History Of Current Complaint Stated Complaint: 2208 PER POLICE Time Seen by Provider: 09/02/19 19:18 Hx Obtained From: Other: - Police Hx From Patient Unobtainable Due To: Other - Intoxication Severity Initially: Mild Severity Currently: Mild Character: Angry Aggravating Factor(s): Nothing Alleviating Factor(s): Nothing Associated Signs And Symptoms: Negative - Vomiting, Hostile - Allergies/Home Medications Allergies/Adverse Reactions: Allergies Allergy/AdvReac Type Severity Reaction Status Date / Time Penicillins Allergy Unknown Verified 09/04/19 17:08 Reaction Details amoxicillin AdvReac Severe Hives Verified 09/04/19 17:08 clindamycin AdvReac Mild Heartburn Verified 09/04/19 17:08 codeine AdvReac Mild Constipatio Verified 09/04/19 17:08 n PMH/Surg Hx/FS Hx/Imm Hx Previously Healthy: No - LEVEL 5 CAVEAT: COMPLETE PMH UNATTAINABLE DUE TO PATIENT INTOXICATION. Endocrine/Hematology History: Denies: Hx Diabetes, Hx Thyroid Disease Cardiovascular History: Reports: Hx Hypertension - hx of fluctuating BP Respiratory History: Denies: Hx Asthma, Hx Chronic Obstructive Pulmonary Disease (COPD) GI History: Denies: Hx Ulcer History: Denies: Hx Dialysis Sensory History: Denies: Hx Eye Prosthesis, Hx Legally Blind, Hx Deafness Opthamlomology History: Denies: Hx Eye Prosthesis, Hx Legally Blind Neurological History: Denies: Hx Dementia - Surgical History Surgery Procedure, Year, and Place: Hernia Repair as a child Infectious Disease History: Unable to Obtain/Confirm Infectious Disease History: Denies: Hx Clostridium Difficile, Hx Hepatitis, Hx Human Immunodeficiency Virus (HIV), Hx of Known/Suspected MRSA, Hx Shingles, Hx Tuberculosis, Hx Known/ Suspected VRE, Hx Known/Suspected VRSA, History Other Infectious Disease, Traveled Outside the [place] in Last 30 Days - Family History Known Family History: Positive: Hypertension, Diabetes - mother Negative: Cardiac Disease - Social History Alcohol Use: Daily Alcohol Amount: 2 drinks daily Hx Substance Use: Yes Substance Use Type: Reports: Cocaine, Marijuana Hx Tobacco Use: Yes Smoking Status (MU): Heavy Every Day Tobacco Smoker Type: Cigarettes Amount Used/How Often: 0.5ppd Have You Smoked in the Last Year: Yes Review of Systems - ROS Summary Review of Systems Summary: LEVEL 5 CAVEAT: COMPLETE ROS UNATTAINABLE DUE TO PATIENT INTOXICATION. Negative: Vomiting Neurological/Mental Status: Other - Alcohol intoxication Positive: Slurred Speech All Other Systems Reviewed And Are Negative: No Physical Exam - Summary Physical Exam Summary: LEVEL 5 CAVEAT: COMPLETE PE UNATTAINABLE DUE TO PATIENT INTOXICATION. Appearance: Well-appearing, Well-nourished, refusing to lie in bed Skin: Warm, dry, no obvious rash Eyes: sclera anicteric, no conjunctival pallor ENT: mucous membranes moist, pharynx appears normal Neck: Supple, nontender Respiratory: Clear to auscultation, no signs of respiratory distress Cardiovascular: Normal S1, S2. No murmurs. Normal distal pulses in tibial and radial bilaterally. Abdomen: Soft, nontender, normal active bowel sounds present Musculoskeletal: Normal, Strength/ROM Intact Neurological: Awake, slurring speech, unsteady on feet Psychiatric: Not cooperating with police Triage Information Reviewed: Yes Vital Signs On Initial Exam: Initial Vitals Temp Pulse Resp BP Pulse Ox 0 F 0 0 0/0 0 09/02/19 19:19 09/02/19 19:19 09/02/19 19:19 09/02/19 19:19 09/02/19 19:19 Vital Signs Reviewed: Yes Procedures - Sedation Patient Received Moderate/Deep Sedation with Procedure: No Diagnostics - Vital Signs Vital Signs Temp Pulse Resp BP Pulse Ox 09/02/19 19:19 0 F 0 0 0/0 0 - Laboratory Lab Statement: Any lab studies that have been ordered have been reviewed, and results considered in the medical decision making process. Re-Evaluation - Re-Evaluation First Eval Re-Evaluation Time: 19:44 Comment: Patient threw himself on the ground after receiving chemical restraints , so I authorized physical restraints. Second Eval Re-Evaluation Time: 05:21 Comment: Patient is awake, alert, and oriented, and would like to go home. Course/Dx - Course Course Of Treatment: This patient is a 38 year old M brought to ED as a 2209 with a chief complaint of alcohol intoxication since [employer]. Patient was medicated for chemical restraint with B52 due to patient agitation. After sleeping in the ED, patient sobered up and was alert and oriented, safe for discharge. Patient will be discharged home with dx of alcohol intoxication. - Diagnoses Provider Diagnoses: Alcohol intoxication Discharge ED - Sign-Out/Discharge Documenting (check all that apply): Patient Departure - Discharge - Discharge Plan Condition: Stable Disposition: HOME Patient Education Materials: Alcohol Intoxication (ED) Referrals: [facility] [Outside] - Billing Disposition and Condition Condition: STABLE Disposition: Home - Attestation Statements Document Initiated by Scribe: Yes Documenting Scribe: Latrell Palacios Provider For Whom Angelikaibe is Documenting (Include Credential): Luis E Glynn MD Scribe Attestation: ILatrell, scribed for Luis E Glynn MD on 09/07/19 at 1818. Scribe Documentation Reviewed: Yes Provider Attestation: The documentation as recorded by the Latrell brandon accurately reflects the service I personally performed and the decisions made by me, Luis E Glynn MD Status of Scribe Document: Viewed - Assessment for Patient Restraint Face to Face Encounter Date: 09/02/19 Face to Face Encounter Time: 19:21 Evaluation of the Patient's Immediate Situation: Pt is agitated in ED, threatening staff and not being compliant to instructions. Patient's Reaction to Intervention: Attempts at de-escalation verbally were ineffective. Patient's Medication and Behavioral Condition: Pt will be medicated for agitation and may require brief physical restraints pending onset of medication. At 1944 after receiving medications, patient continued to be agitated and threw himself on the ground, so I authorized brief physical restraints. Evaluate Need for Continued Restraint: Continue
[2019-09-03 05:32] VITALS: BP 143/81
== END 2019-09-03 05:30 | disposition home or self-care (01) ==
LOC: ED 19:13
DX: F10.929 Alcohol use, unspecified with intoxication, unspecified (principal); I10 Essential (primary) hypertension; F17.210 Nicotine dependence, cigarettes, uncomplicated; Z88.0 Allergy status to penicillin; Z88.1 Allergy status to other antibiotic agents; Z88.5 Allergy status to narcotic agent
CPT/HCPCS: 96372; 99285; J1200; J1630; J2060

== ENCOUNTER 2019-09-04 16:58 | Emergency (ER) | payer SELFPAY ==
[2019-09-04] MEDS ORDERED: Aspirin 81 mg CHEW TAB* 81 MG TAB.CHEW PO ONE (17:05)
--- NOTE | 2019-09-04 17:27 | ED ---
Throat Pain/Nasal Congestion - HPI Summary HPI Summary: This pt is a 38 y/o male presenting to [facility] via EMS for throat spasms and throat pain for the past 2-3 months. Pt reports his throat spasms are intermittent and he can barely speak when this happens. He states when he has throat pain he also has a headache. Pt reports today he was on FaceTime with his cousin telling him about his symptoms and he passed out. Pt states he passes out every time he gets anxiety. Denies chest pain, SOB, nausea, vomiting. Denies any PMHx. Pt admits to drinking 2 beers today as he thought this would relax him. - History of Current Complaint Chief Complaint: EDFacialInjury Time Seen by Provider: 09/04/19 17:05 Hx Obtained From: Patient Onset/Duration: Lasting Weeks, Still Present Severity: Moderate Associated Signs And Symptoms: Negative: Dysphagia, FB Sensation, Hoarseness, Nasal Discharge Cough: None - Allergies/Home Medications Allergies/Adverse Reactions: Allergies Allergy/AdvReac Type Severity Reaction Status Date / Time Penicillins Allergy Unknown Verified 09/04/19 17:08 Reaction Details amoxicillin AdvReac Severe Hives Verified 09/04/19 17:08 clindamycin AdvReac Mild Heartburn Verified 09/04/19 17:08 codeine AdvReac Mild Constipatio Verified 09/04/19 17:08 n PMH/Surg Hx/FS Hx/Imm Hx Endocrine/Hematology History: Denies: Hx Diabetes, Hx Thyroid Disease Cardiovascular History: Reports: Hx Hypertension - hx of fluctuating BP Respiratory History: Denies: Hx Asthma, Hx Chronic Obstructive Pulmonary Disease (COPD) GI History: Denies: Hx Ulcer History: Denies: Hx Dialysis Sensory History: Denies: Hx Eye Prosthesis, Hx Legally Blind, Hx Deafness Opthamlomology History: Denies: Hx Eye Prosthesis, Hx Legally Blind Neurological History: Denies: Hx Dementia - Surgical History Surgery Procedure, Year, and Place: Hernia Repair as a child Infectious Disease History: No Infectious Disease History: Denies: Hx Clostridium Difficile, Hx Hepatitis, Hx Human Immunodeficiency Virus (HIV), Hx of Known/Suspected MRSA, Hx Shingles, Hx Tuberculosis, Hx Known/ Suspected VRE, Hx Known/Suspected VRSA, History Other Infectious Disease, Traveled Outside the [place] in Last 30 Days - Family History Known Family History: Positive: Hypertension, Diabetes - mother Negative: Cardiac Disease - Social History Alcohol Use: Daily Alcohol Amount: 2 drinks daily Hx Substance Use: Yes Substance Use Type: Reports: Cocaine, Marijuana Hx Tobacco Use: Yes Smoking Status (MU): Heavy Every Day Tobacco Smoker Type: Cigarettes Amount Used/How Often: 0.5ppd Have You Smoked in the Last Year: Yes Review of Systems Negative: Fever, Chills ENT: Other - POSITIVE: throat pain, throat spasms Negative: Chest Pain Negative: Shortness Of Breath Negative: Vomiting, Nausea Positive: Headache, Syncope All Other Systems Reviewed And Are Negative: Yes Physical Exam - Summary Physical Exam Summary: VITAL SIGNS: Reviewed. GENERAL: Patient is a well-developed and nourished male who is lying comfortable in the stretcher. Patient is not in any acute respiratory distress. HEAD AND FACE: No signs of trauma. No ecchymosis, hematomas or skull depressions. No sinus tenderness. EYES: PERRLA, EOMI x 2, No injected conjunctiva, no nystagmus. EARS: Hearing grossly intact. Ear canals and tympanic membranes are within normal limits. MOUTH: Oropharynx within normal limits. Dental decay. No trismus. Alcohol in his breath. NECK: Supple, trachea is midline, no adenopathy, no JVD, no carotid bruit, no c- spine tenderness, neck with full ROM. CHEST: Symmetric, no tenderness at palpation LUNGS: Clear to auscultation bilaterally. No wheezing or crackles. CVS: Regular rate and rhythm, S1 and S2 present, no murmurs or gallops appreciated. ABDOMEN: Soft, non-tender. No signs of distention. No rebound, no guarding, and no masses palpated. Bowel sounds are normal. EXTREMITIES: FROM in all major joints, no edema, no cyanosis or clubbing. NEURO: Alert and oriented x 3. No acute neurological deficits. Speech is normal and follows commands. SKIN: Dry and warm. Triage Information Reviewed: Yes Vital Signs On Initial Exam: Initial Vitals Temp Pulse Resp BP Pulse Ox 98.9 F 105 18 209/145 98 09/04/19 17:01 09/04/19 17:01 09/04/19 17:01 09/04/19 17:01 09/04/19 17:01 Vital Signs Reviewed: Yes Procedures - Sedation Patient Received Moderate/Deep Sedation with Procedure: No Diagnostics - Vital Signs Vital Signs Temp Pulse Resp BP Pulse Ox 09/04/19 17:01 98.9 F 105 18 209/145 98 - Laboratory Result Diagrams: 09/04/19 17:26 09/04/19 17:26 Lab Statement: Any lab studies that have been ordered have been reviewed, and results considered in the medical decision making process. - Radiology Chest XR Radiology Interpretation Completed By: Radiologist Summary of Radiographic Findings: IMPRESSION: No evidence for active cardiopulmonary disease. Dr. Romero has reviewed this report. - CT Soft Tissue Neck CT CT Interpretation Completed By: Radiologist Summary of CT Findings: Impression: 1. Dental caries involving the left upper 1st and 2nd premolars, the left lower 1st molar, the left lower 2nd premolar, and the right lower 1st molar. 2. Soft tissue swelling and edema in the submandibular region, which may represent cellulitis. 3. Right maxillary sinusitis. 4. 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 ED physician has reviewed this report. - EKG 1809 Cardiac Rate: NL - at 98 bpm EKG Rhythm: Sinus Rhythm Summary of EKG Findings: EKG at 1809 shows sinus rhythm at a rate of 98 bpm. T wave inversions in lead III. No ST elevations. Dr. Romero has reviewed and interpreted this EKG. Re-Evaluation - Re-Evaluation First Eval Re-Evaluation Time: 21:15 Comment: Patient has elected to leave against medical advice despite the concern for cellulitis in the submandibular region on the Soft Tissue Neck CT. We discussed all risks and benefits of leaving AMA, and the patient would still like to leave AMA. EENT Course/Dx - Course Assessment/Plan: This pt is a 38 y/o male presenting to [facility] via EMS for throat spasms and throat pain for the past 2-3 months. Pt reports his throat spasms are intermittent and he can barely speak when this happens. He states when he has throat pain he also has a headache. Pt reports today he was on FaceTime with his cousin telling him about his symptoms and he passed out. Pt states he passes out every time he gets anxiety. Denies chest pain, SOB, nausea , vomiting. Denies any PMHx. Pt admits to drinking 2 beers today as he thought this would relax him. In the ED course the patient was placed on a monitoring specialist, IV access was obtained, IV fluids started. Blood test w/o a significant abnormality except for CPK of 418. Urinalysis is negative for UTI. Neck soft tissue CT Impression: 1. Dental caries involving the left upper 1st and 2nd premolars, the left lower 1st molar, the left lower 2nd premolar, and the right lower 1st molar. 2. Soft tissue swelling and edema in the submandibular region, which may represent cellulitis. 3. Right maxillary sinusitis. 4. 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 Patient was given Levaquin and Toradol for the infection. The patient is allergic to Penicillin and Clindamycin. The patient was offered to be admitted to the hospital, however he refuses. I extensively discussed with the patient the benefits and risk of leaving AMA. I also discussed the alternatives to leaving AMA, however, the patient still insists to leave the hospital AMA. The patient is clinically sober, free from distracting injury, appears to have intact insight, judgment, and reason, and in my opinion has the capacity to make decisions. Patient has full capacity and is cognitively intact. The patient presents with a sore throat and swelling of the neck. I have explained that I am concerned with those symptoms which may represent dental infection, cellulitis, John angina, and . The patient verbalizes understanding of my concerns. I have also explained the results of the labs and even though they are slightly abnormal. The primary nurse and the charge nurse also strongly recommended that the patient should not leave AMA. Patient understands the risks of leaving AMA, which includes but is not restricted to . Patient signed the AMA form. Patient was also advised to return to ED if he changes his mind or if the symptoms worsen or other symptoms appear. Patient understands and agrees. Again, I discussed all the findings and test results with the patient. Patient was instructed to return to the emergency room immediately if any of the symptoms return or worsen. Plan of care was discussed with the patient, and he understands and agrees. All questions were answered at patient satisfaction. There were no further complaints or concerns. Patient signed AMA, and he was discharged AMA. - Diagnoses Provider Diagnoses: Dental cavities, Cellulitis of submandibular region Discharge ED - Sign-Out/Discharge Documenting (check all that apply): Patient Departure - Patient leaving AMA. - Discharge Plan Condition: Stable Disposition: AGAINST MEDICAL ADVICE Prescriptions: Ibuprofen 600 mg PO TID PRN #30 tablet MDD 3 PRN Reason: Pain Ibuprofen TAB* [Motrin TAB* 800 MG] 800 mg PO Q8H PRN #30 tab PRN Reason: Pain - Moderate Levofloxacin TAB* [Levaquin TAB*] 750 mg PO DAILY #10 tab Levofloxacin TAB* [Levaquin TAB*] 750 mg PO DAILY #10 tab Referrals: No Primary Care Phys,NOPCP [Primary Care Provider] - - Billing Disposition and Condition Condition: STABLE Disposition: Against Medical Advice - Attestation Statements Document Initiated by Scribe: Yes Documenting Scribe: Christiane Cristobal Provider For Whom Kvng is Documenting (Include Credential): Joseph Romero MD Scribe Attestation: Jacey Vasquez Natalie George, scribed for Joseph Romero MD on 09/06/19 at 0244. Scribe Documentation Reviewed: Yes Provider Attestation: The documentation as recorded by the scribe, Christiane Cristobal accurately reflects the service I personally performed and the decisions made by Joseph perdue MD Status of Scribe Document: Viewed
[2019-09-04] MEDS ORDERED: NS 0.9% 1000 ML** 1,000 ML IV SCH (17:30)
[2019-09-04 17:38] LABS: Urine Appearance Clear; Urine Bilirubin Negative (Negative); Urine Blood Negative (Negative); Urine Color Colorless; Urine Glucose Negative (Negative); Urine Ketones Negative (Negative); Urine Nitrite Negative (Negative); Urine Protein Negative (Negative); Urine Specific Gravity 1.002 (1.010-1.030); Urine Urobilinogen Negative (Negative)
[2019-09-04 17:38] LABS: ABS Basophils 0.1 10^3/ul (0-0.2); ABS Eosinophils 0.1 10^3/ul (0-0.6); ABS Lymphocytes 2.8 10^3/ul (1.0-4.8); ABS Monocytes 0.6 10^3/ul (0-0.8); ABS Neutrophils 3.1 10^3/ul (1.5-7.7); Eosinophil % 1.4 %; Hematocrit 43 % (42-52); Hemoglobin 14.9 g/dL (14.0-18.0); Lymphocyte % 42.3 %; Mean Corpuscular HGB Conc 34 g/dL (31-36); Mean Corpuscular Hemoglobin 32 pg (27-31); Mean Corpuscular Volume 93 fL (80-94); Mean Platelet Volume 7.4 fL (7.4-10.4); Nucleated Red Blood Cells % 0.1; Platelet Count 295 10^3/uL (150-450); Red Blood Count 4.65 10^6 /uL (4.18-5.48); Red Cell Distribution Width 14 % (10-15); White Blood Count 6.7 10^3/uL (3.5-10.8)
[2019-09-04 17:52] LABS: Albumin/Globulin Ratio 1.7 (1-3); BUN/Creatinine Ratio 13.6 (8-20); Calcium 9.8 mg/dL (8.6-10.3); EGFR African American 118.6 (>60); Globulin 2.9 g/dL (2-4); Magnesium 2.3 mg/dL (1.9-2.7); Potassium 3.8 mmol/L (3.5-5.0); Total Bilirubin 0.4 mg/dL (0.2-1.0); Total Protein 7.9 g/dL (6.4-8.9)
[2019-09-04] MEDS ORDERED: Iohexol 300* (CONTRAST) 10 ML SDV IV ONE (18:07)
[2019-09-04 18:42] LABS: C Reactive Protein 2.97 mg/L (<8.01)
[2019-09-04] MEDS ORDERED: Ketorolac INJ* 30 MG/ML 1 ML VIAL IV PUSH ONE (21:09)
[2019-09-04] MEDS ORDERED: Levofloxacin 750 MG IVPREMIX(* 750 MG/150 ML BAG IVPB ONE (21:09)
[2019-09-04 21:31] VITALS: BP 137/88
== END 2019-09-04 21:31 | disposition left against medical advice (07) ==
LOC: ED 16:58
DX: K02.9 Dental caries, unspecified (principal); K12.2 Cellulitis and abscess of mouth; J32.0 Chronic maxillary sinusitis; S02.831 Fracture of medial orbital wall, right side; X58.XXXS Exposure to other specified factors, sequela; R51 Headache; R55 Syncope and collapse; I10 Essential (primary) hypertension; Z88.1 Allergy status to other antibiotic agents; Z88.5 Allergy status to narcotic agent; Z88.0 Allergy status to penicillin; F17.210 Nicotine dependence, cigarettes, uncomplicated
CPT/HCPCS: 36415; 70491; 71045; 80053; 81003; 82550; 83605; 83735; 85025; 86140; 93005; 96361; 96365; 96375; 99284; A9270-GY; J1885; Q9967